=== PATIENT | male | born 1995 | race Caucasian/White ===

== ENCOUNTER → 2018-04-07 | Emergency (ER) | payer SELFPAY | LOC: ER 11:26 | DX: F41.0 Panic disorder [episodic paroxysmal anxiety] (principal); Z53.21 Procedure and treatment not carried out due to patient leaving prior to being seen by health care provider ==

== ENCOUNTER 2018-06-27 13:37 | Emergency (ER) | payer SELFPAY ==
--- NOTE | 2018-06-27 14:03 | ED.PDOC ---
History of Present Illness - General Chief Complaint: Lower Extremity Injury Stated Complaint: bilateral foot injury Time Seen by Provider: 06/27/18 13:59 Source: patient Exam Limitations: no limitations - History of Present Illness Initial Comments: DROPPED LARGE TABLE ONTO DORSAL ASPECT OF FEET RILEY LAST PM. C/O INCREASING PAIN AND SWELLING. Pain - Lower Extremity: moderate: Right Ankle, Left Foot, Right Foot Improving Factors: nothing Worsening Factors: other - AMBULATION Allergies/Adverse Reactions: Allergies Acetaminophen [From Vicodin] Allergy (Verified 06/27/18 13:51) Hydrocodone [From Vicodin] Allergy (Verified 06/27/18 13:51) Penicillins Allergy (Verified 06/27/18 13:50) Home Medications: Ambulatory Orders Indomethacin 50 mg PO TID PRN #14 cap 06/27/18 Review of Systems - Review of Systems Constitutional: States: no symptoms reported Gastrointestinal/Abdominal: Denies: nausea, vomiting Musculoskeletal: States: see HPI Skin: States: other - BRUISING DORSAL ASPECT L FOOT Neurological: Denies: numbness, tingling, weakness Endocrine: States: no symptoms reported Hematologic/Lymphatic: States: no symptoms reported Family Medical History - Family History Mother Family History: No Known Physical Exam - Physical Exam General Appearance: Alert, No apparent distress Eyes, Ears, Nose, Throat: normal ENT inspection Leg: normal inspection, no evidence of injury Knee: normal inspection, no evidence of injury Ankle: other - MILD-MOD TTP R MED/LAT MALEOLI, Foot: other - TENDER TO PALPATION DORSAL ASPECT R FOOT, MINIMAL SWELLING, NVI, DORSAL ASPECT OF L FOOT WITH SMALL AREA OF ECCHYMOSIS, TTP, NVI, NO BONY DEFORMITY. Neuro/Tendon: normal sensation, normal motor functions Mental Status: alert, oriented x 3 Skin: other - ECCYMOSIS NOTED. Progress - EKG/XRAY/CT XRAY: L/R FOOT, R ANKLE, MULUGETA Departure - Departure Clinical Impression: Contusion of foot, left Qualifiers: Encounter type: initial encounter Qualified Code(s): S90.32XA - Contusion of left foot, initial encounter Contusion, ankle Qualifiers: Encounter type: initial encounter Laterality: right Qualified Code(s): S90.01XA - Contusion of right ankle, initial encounter Contusion of foot, right Qualifiers: Encounter type: initial encounter Qualified Code(s): S90.31XA - Contusion of right foot, initial encounter Time of Disposition: 15:17 Disposition: Discharge to Home or Self Care Condition: Good Departure Forms: ED Discharge - Pt. Copy, Patient Portal Self Enrollment Instructions: DI for Leg Pain Referrals: Tram Little NP [Primary Care Provider] - 1-2 Weeks Prescriptions: Indomethacin 50 mg PO TID PRN #14 cap PRN Reason: Pain Home Medications: Ambulatory Orders Indomethacin 50 mg PO TID PRN #14 cap 06/27/18
--- NOTE | 2018-06-27 14:35 | RAD ---
EXAM DESCRIPTION: Foot,Right 3 Views CLINICAL HISTORY: 22 years, Female, DROPPED TABLE ON FOOT COMPARISON: None TECHNIQUE: AP, lateral, and oblique views of the right foot FINDINGS: No fracture. No dislocation. There is no bone, joint, or soft tissue abnormality observed. There is no radiopaque foreign body. IMPRESSION: Normal Electronically signed by: Bahman Castro MD 06/27/2018 2:32 PM CDT
--- NOTE | 2018-06-27 14:35 | RAD ---
EXAM DESCRIPTION: Ankle,Right 3 Views CLINICAL HISTORY: 22 years, Female, DROPPED TABLE ONTO FOOT COMPARISON: None. TECHNIQUE: AP/lateral/oblique of the right ankle FINDINGS: Intact medial and lateral malleolus. There is no soft tissue swelling laterally or medially. Intact proximal metatarsals. Intact dome of the talus. Lateral view shows no evidence of fracture of the body of the talus or calcaneus. No calcaneal spurring is seen. No ankle joint narrowing, spurring or effusion. IMPRESSION: Negative for fracture or dislocation. Electronically signed by: Bahman Castro MD 06/27/2018 2:32 PM CDT
--- NOTE | 2018-06-27 14:37 | RAD ---
EXAM DESCRIPTION: Foot,Left 3 Views CLINICAL HISTORY: 22 years, Female, DROPPED TABLE ON FOOT COMPARISON: None TECHNIQUE: AP, lateral, and oblique views of the left foot FINDINGS: Accessory ossicle along the medial navicular with sclerotic margins. No acute fracture in this area. Lateral view shows intact talus and calcaneus. No fracture of the toes or metatarsals. No midfoot alignment malalignment. There is no bone, joint, or soft tissue abnormality observed. There is no radiopaque foreign body. IMPRESSION: Negative for fracture. Electronically signed by: Bahman Castro MD 06/27/2018 2:34 PM CDT
[2018-06-27 15:25] VITALS: BP 126/59; TEMP 98; O2SAT 99
== END 2018-06-27 15:24 | disposition home or self-care (01) ==
LOC: ER 13:37 → EDSEX 13:37 → ER 15:24
DX: S90.32XA Contusion of left foot, initial encounter (principal); S90.31XA Contusion of right foot, initial encounter; S90.01XA Contusion of right ankle, initial encounter; W20.8XXA Other cause of strike by thrown, projected or falling object, initial encounter; Z88.6 Allergy status to analgesic agent; Z88.5 Allergy status to narcotic agent; Z88.0 Allergy status to penicillin; Y92.9 Unspecified place or not applicable